=== PATIENT | female | born 1940 | race American Indian/Alaskan Native ===

== ENCOUNTER 2018-05-05 08:49 | Outpatient (CLI) | payer MEDICARE ==
--- NOTE | 2018-05-05 14:27 | Mammography Report ---
BILATERAL DIGITAL SCREENING MAMMOGRAM with CAD: 05/05/18 CLINICAL: Routine screening. COMPARISON:None available. However, a prior mammogram was apparently done [place], [place]. FINDINGS: The breasts are heterogeneously dense, which may obscure small masses. bilateral asymmetries require comparison with a prior mammogram or additional imaging. Right benign calcifications. No architectural distortion or suspicious calcifications. IMPRESSION: Bilateral asymmetries requiring further evaluation. BI-RADS CATEGORY: 0 -- Additional Evaluation Required RECOMMENDATION: Comparison with a previous mammogram. We will attempt to obtain a prior mammogram for comparison. If we do not obtain a prior mammogram within 30 days, a revised report will be issued recommending a recall for additional imaging. Please be advised that the patient should not schedule an appointment for return until adequate time (at least 2 weeks) has passed for us to obtain the prior mammogram. ACR BI-RADS MAMMOGRAPHIC CODES: 0 = Needs additional imaging evaluation; 1 = Negative; 2 = Benign; 3 = Probably benign; 4 = Suspicious; 5 = Malignant; 6 = Known biopsy-proven malignancy COMMENT: 1. Dense breast tissue, i.e., adenosis, fibrocystic changes, etc., may obscure an underlying neoplasm. 2. Approximately 10% of cancers are not detected with mammography. 3. A negative mammography report should not delay biopsy if a clinically suspicious mass is present. COMMENT: Patient follow-up letters are generated via our [employer] application.
== END 2018-05-05 08:50 | disposition home or self-care (01) ==
LOC: MAMMO 08:49
PROVIDERS: ATTEND Internal Medicine
DX: Z12.31 Encounter for screening mammogram for malignant neoplasm of breast (principal)
CPT/HCPCS: 77067

== ENCOUNTER 2018-06-20 08:29 | Outpatient (CLI) | payer MEDICARE ==
--- NOTE | 2018-06-20 15:10 | Mammography Report ---
BILATERAL DIGITAL DIAGNOSTIC MAMMOGRAM and LEFT BREAST ULTRASOUND: 06/20/18 08:29:00 CLINICAL: Recalled for bilateral asymmetries. COMPARISON:05/05/18 screening FINDINGS: Additional mammographic views of the right breast were performed and are negative.A left upper asymmetry persists on lateral and spot compression MLO views. Ultrasound of the upper left breast was performed and demonstrated a slightly irregular complex cyst at 11 o'clock 3 cm from the nipple. It measures 7 x 3 x 5 mm and may correlate with the mammographic density. A benign cyst at 2 o'clock at the edge of the areola measures 6 x 2 x 5 mm. IMPRESSION: A probably benign left upper mammographic asymmetry and a probably benign left complex cyst at 11 o'clock.Negative right breast. BI-RADS CATEGORY: 3 - - Probably Benign RECOMMENDATION: 6 month followup left mammogram and left breast ultrasound. ACR BI-RADS MAMMOGRAPHIC CODES: 0 = Needs additional imaging evaluation; 1 = Negative; 2 = Benign; 3 = Probably benign; 4 = Suspicious; 5 = Malignant; 6 = Known biopsy-proven malignancy COMMENT: 1. Dense breast tissue, i.e., adenosis, fibrocystic changes, etc., may obscure an underlying neoplasm. 2. Approximately 10% of cancers are not detected with mammography. 3. A negative mammography report should not delay biopsy if a clinically suspicious mass is present. COMMENT: Patient follow-up letters are generated via our [employer] application.
== END 2018-06-20 08:30 | disposition home or self-care (01) ==
LOC: MAMMO 08:29
PROVIDERS: ATTEND Internal Medicine
DX: R92.8 Other abnormal and inconclusive findings on diagnostic imaging of breast (principal)
CPT/HCPCS: 77066

== ENCOUNTER 2018-07-18 13:54 | Outpatient (CLI) | payer MEDICARE ==
[2018-07-18 14:43] LABS: BUN/Creatinine Ratio 25; Blood Urea Nitrogen 20 mg/dL (7-17); Calcium 10.5 mg/dL (8.4-10.2); Hemolysis Index 48
== END 2018-07-18 13:55 | disposition home or self-care (01) ==
LOC: LAB 13:54
PROVIDERS: ATTEND Internal Medicine Nephrology
DX: I10 Essential (primary) hypertension (principal); R94.4 Abnormal results of kidney function studies
CPT/HCPCS: 36415; 80048

== ENCOUNTER 2018-09-06 09:13 | Outpatient (CLI) | payer MEDICARE | END 2018-09-06 09:14 | disposition home or self-care (01) | LOC: LAB 09:13 | PROVIDERS: ATTEND Internal Medicine | DX: E11.9 Type 2 diabetes mellitus without complications (principal); E66.3 Overweight | CPT/HCPCS: 36415; 82607; 83036 ==

== ENCOUNTER 2019-01-03 13:42 | Outpatient (CLI) | payer MEDICARE ==
[2019-01-03 14:28] LABS: Albumin 4.2 g/dL (3.9-5); BUN/Creatinine Ratio 23; Blood Urea Nitrogen 21 mg/dL (7-17); Calcium 10.5 mg/dL (8.4-10.2); Hemolysis Index 6
== END 2019-01-03 13:43 | disposition home or self-care (01) ==
LOC: LAB 13:42
PROVIDERS: ATTEND Internal Medicine Nephrology
DX: I10 Essential (primary) hypertension (principal); E11.8 Type 2 diabetes mellitus with unspecified complications; R60.9 Edema, unspecified; E83.52 Hypercalcemia
CPT/HCPCS: 36415; 80048; 82040; 84100

== ENCOUNTER 2019-01-22 09:38 | Outpatient (CLI) | payer MEDICARE | END 2019-01-22 09:39 | disposition home or self-care (01) | LOC: LAB 09:38 | PROVIDERS: ATTEND Internal Medicine | DX: E11.9 Type 2 diabetes mellitus without complications (principal); E56.9 Vitamin deficiency, unspecified | CPT/HCPCS: 36415; 82607; 83036 ==

== ENCOUNTER 2019-02-08 12:37 | Outpatient (CLI) | payer MEDICARE ==
[2019-02-08 12:58] LABS: Hematocrit 38.8 % (30.3-42.9); Hemoglobin 13.1 gm/dl (10.1-14.3); Mean Corpuscular HGB Conc 34 % (30-34); Mean Corpuscular Volume 95 fl (79-97); Platelet Count 156 K/mm3 (140-440); Red Cell Distribution Width 15.6 % (13.2-15.2)
[2019-02-08 13:19] LABS: Bilirubin,Urine NEG (Negative); Blood,Urine NEG (Negative); Color,Urine Yellow (Yellow); Mucus,Urine FEW /HPF; Protein,Urine <15 mg/dL mg/dL (Negative); Urobilinogen,Urine < 2.0 mg/dL (<2.0)
--- NOTE | 2019-02-08 15:30 | Mammography Report ---
LEFT DIGITAL DIAGNOSTIC MAMMOGRAM WITH CAD -- 02/08/2019 LEFT LIMITED BREAST ULTRASOUND INDICATION: Follow-up of a mammographic asymmetry and a probably benign finding by ultrasound. TECHNIQUE: Digital left mammographic imaging was performed. Limited ultrasound was performed. This e xamination was interpreted with the benefit of Computer-Aided Detection (CAD) analysis. COMPARISON: 06/20/2018 FINDINGS: Breast Density: The breast is heterogeneously dense, which may obscure small masses. MAMMOGRAPHIC FINDINGS: The previously described mammographic density has resolved. No mass, support architect ural distortion or suspicious calcifications. ULTRASOUND FINDINGS: Targeted ultrasound evaluation was performed of the area of interest. Sound de monstrated a benign cyst at 11:00 3 cm from the nipple measuring 10 x 2 x 6 mm compared to 7 x 3 x 5 mm on the last exam. No solid mass or shadowing. IMPRESSION: Negative mammogram and a slightly larger benign left breast cyst at 11:00 3 cm from the n ipple. No suspicious finding. Follow up recommendation: Routine yearly BI-RADS Category 2: Benign. A "normal" or negative report should not discourage follow up or biopsy of a clinically significant f inding. A written summary of these findings will be mailed to the patient. The patient will be entered into a mammography reporting system which will generate a reminder letter for the patient's next appointmen t at the appropriate interval. According to the [employer], yearly mammograms are recommended starting at age 40 and continuing as long as a woman is in good health. Breast MRI is recommended for women with an mahesh roximately 20-25% or greater lifetime risk of breast cancer, including women with a strong family his tory of breast or ovarian cancer and women who have been treated for Hodgkin's disease. Signer Name: Herrera Cates MD Signed: 02/08/2019 3:26 PM Workstation Name: [id number]
[2019-02-10 12:38] LABS: Creatinine,Urine 129.8 mg/dL (0.1-20.0); Microalbumin/Creatinine Ratio 9.2 ug/mg; Protein/Creatinine Ratio,Urine 0.06
== END 2019-02-08 12:38 | disposition home or self-care (01) ==
LOC: MAMMO 12:37
PROVIDERS: ATTEND Internal Medicine
DX: R92.8 Other abnormal and inconclusive findings on diagnostic imaging of breast (principal); R82.998 Other abnormal findings in urine
CPT/HCPCS: 36415; 81001; 82043; 82570; 84156; 85027; 87086

== ENCOUNTER 2019-03-06 11:42 | Outpatient (CLI) | payer MEDICARE ==
[2019-03-06 12:34] LABS: BUN/Creatinine Ratio 24; Blood Urea Nitrogen 22 mg/dL (7-17); Calcium 10.4 mg/dL (8.4-10.2); Hemolysis Index 13
== END 2019-03-06 11:43 | disposition home or self-care (01) ==
LOC: LAB 11:42
PROVIDERS: ATTEND Internal Medicine Nephrology
DX: E83.52 Hypercalcemia (principal); R94.4 Abnormal results of kidney function studies; I10 Essential (primary) hypertension; R06.83 Snoring; R60.9 Edema, unspecified; E11.8 Type 2 diabetes mellitus with unspecified complications
CPT/HCPCS: 36415; 80048

== ENCOUNTER 2019-03-22 08:20 | Outpatient (CLI) | payer MEDICARE ==
--- NOTE | 2019-03-22 16:17 | PET Report ---
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 The patient weighed 163 lbs. The patient w as injected with 15.7 mCi of FDG in the left wrist at 0903 hours and imaging was started at 0948 hour s. The patient was imaged from theall CT scans at this location are performed using CT dose reductio n for ALARA by means of automated exposure control. Images were reviewed on a workstation. COMPARISON: No relevant comparison at this facility. FINDINGS: BRAIN: [Physiologic FDG uptake] NECK: [Physiologic FDG uptake] CHEST WALL: [Physiologic FDG uptake] MEDIASTINUM: [Physiologic FDG uptake] LUNGS: [Physiologic FDG uptake] HEPATOBILIARY: [Physiologic FDG uptake] PANCREAS: [Physiologic FDG uptake SPLEEN: [Physiologic FDG uptake] KIDNEYS/BLADDER: [Physiologic FDG uptake] ADRENAL GLANDS: [Physiologic FDG uptake] GI/MESENTERY: [Physiologic FDG uptake] PELVIC VISCERA: [Physiologic FDG uptake] LYMPH NODES: [Physiologic FDG uptake] OSSEOUS STRUCTURES: [Physiologic FDG uptake]. No suspicious lytic or blastic bony lesions are identi fied. ADDITIONAL FINDINGS: [Partial extravasation of the radiotracer in the left wrist is noted.] IMPRESSION: Negative PET CT Signer Name: Fabian Fernandez Jr, MD Signed: 03/22/2019 4:13 PM Workstation Name: [id number]
== END 2019-03-22 08:21 | disposition home or self-care (01) ==
LOC: PET 08:20
PROVIDERS: ATTEND Internal Medicine Hematology & Oncology
DX: D47.2 Monoclonal gammopathy (principal); R73.09 Other abnormal glucose
CPT/HCPCS: 78816; 82962; A9552

== ENCOUNTER 2019-06-22 10:53 | Outpatient (CLI) | payer MEDICARE ==
[2019-06-22 11:37] LABS: Albumin 4.5 g/dL (3.9-5); BUN/Creatinine Ratio 20; Blood Urea Nitrogen 18 mg/dL (7-17); Calcium 10.4 mg/dL (8.4-10.2); Hemolysis Index 3
[2019-06-22 12:13] LABS: Bacteria,Urine 2+ /HPF (Negative); Bilirubin,Urine NEG (Negative); Blood,Urine SM (Negative); Color,Urine Red (Yellow); Mucus,Urine FEW /HPF; Protein,Urine <15 mg/dL mg/dL (Negative); Urobilinogen,Urine < 2.0 mg/dL (<2.0)
[2019-06-22 12:32] LABS: Creatinine,Urine 157.1 mg/dL (0.1-20.0); Microalbumin/Creatinine Ratio 10.8 ug/mg
== END 2019-06-22 10:54 | disposition home or self-care (01) ==
LOC: LAB 10:53
PROVIDERS: ATTEND Internal Medicine Nephrology
DX: R94.4 Abnormal results of kidney function studies (principal)
CPT/HCPCS: 36415; 80048; 81001; 82040; 82043; 84100

== ENCOUNTER 2020-08-28 11:02 | Emergency (ER) | payer MEDICARE ==
--- NOTE | 2020-08-28 12:23 | Emergency Department Report ---
Blank Doc - Documentation Documentation: 79-year-old female that was sent by PCP for HTN and headaches. Takes Aspirin. 1- This initial assessment/diagnostic orders/clinical plan/ treatment(s) is/are subject to change based on pt's health status, clinical progression and re- assessment by fellow clinical providers in the ED. Further treatment and workup at subsequent clinical provers discretion. Patient/guardians urged not to elope from ED as their condition may be serious if not clinically assessed and managed. 2-labs 3-EKG 4-CT head
[2020-08-28 12:44] LABS: Basophils % (Auto) 0.6 % (0.0-1.8); Eosinophils % (Auto) 0.4 % (0.0-4.3); Hematocrit 40.8 % (30.3-42.9); Hemoglobin 13.6 gm/dl (10.1-14.3); Lymphocytes # (Auto) 2.2 K/mm3 (1.2-5.4); Lymphocytes % (Auto) 36.2 % (13.4-35.0); Mean Corpuscular HGB Conc 33 % (30-34); Mean Corpuscular Volume 97 fl (79-97); Monocytes # (Auto) 0.4 K/mm3 (0.0-0.8); Monocytes % (Auto) 7.2 % (0.0-7.3); Platelet Count 184 K/mm3 (140-440); Red Blood Count 4.21 M/mm3 (3.65-5.03); Red Cell Distribution Width 16.3 % (13.2-15.2)
[2020-08-28 13:11] LABS: Alanine Aminotransferase 11 units/L (7-56); Albumin 4.4 g/dL (3.9-5); BUN/Creatinine Ratio 18; Blood Urea Nitrogen 14 mg/dL (7-17); Hemolysis Index 26
[2020-08-28 13:36] LABS: Bilirubin,Urine NEG (Negative); Blood,Urine NEG (Negative); Color,Urine Colorless (Yellow); Protein,Urine <15 mg/dL mg/dL (Negative); Urobilinogen,Urine < 2.0 mg/dL (<2.0)
--- NOTE | 2020-08-28 14:16 | Cat Scan Report ---
CT HEAD WITHOUT CONTRAST INDICATION / CLINICAL INFORMATION: headache with HTN. TECHNIQUE: All CT scans at this location are performed using CT dose reduction for ALARA by means of automated e xposure control. COMPARISON: None available. FINDINGS: HEMORRHAGE: None. EXTRA-AXIAL SPACES: Normal in size and morphology for the patient's age. VENTRICULAR SYSTEM: Normal in size and morphology for the patient's age. CEREBRAL PARENCHYMA: No significant abnormality. No acute territorial infarct. MIDLINE SHIFT OR HERNIATION: None. CEREBELLUM / BRAINSTEM: No significant abnormality. ORBITS: Normal as visualized. SOFT TISSUES of HEAD: No significant abnormality. CALVARIUM: No significant abnormality. PARANASAL SINUSES / MASTOID AIR CELLS: Normal as visualized. ADDITIONAL FINDINGS: None. IMPRESSION: 1. No acute intracranial abnormality. Signer Name: Jesús Oconnor MD Signed: 08/28/2020 2:11 PM Workstation Name: [id number]
--- NOTE | 2020-08-28 14:34 | Emergency Department Report ---
ED General Adult HPI - General Chief complaint: High BP Stated complaint: hypertensive Time Seen by Provider: 08/28/20 12:20 Source: patient Mode of arrival: Ambulatory Limitations: No Limitations - History of Present Illness Initial comments: CC: My blood pressure was up. My doctor wanted me checked out. HPI: This is a 79-year-old female with history of CAD, diabetes mellitus, hypertension, hyperlipidemia who presents with elevated blood pressure for the past week. Patient did not take her home medications this morning. She normally takes her blood pressure medications at 11 AM when she has a late lunch. She had a 10 AM appointment. She takes blood pressure medications in the morning and evening. She denies any pain or discomfort this time. She denies headache. Denies blurry vision. No chest pain. No abdominal pain. Headache was documented in triage by nursing provider. Patient stated that she over the past week had a slight frontal headache which is now resolved. She denies blurry vision. No chest pain. She has follow-up with her print operator tomorrow. -: Gradual, week(s) (1 week elevated blood pressure) Location: head (Mild headache over the past week which is now resolved) Severity scale (0 -10): 0 Quality: aching Consistency: now resolved Improves with: none Worsens with: none Associated Symptoms: denies other symptoms - Related Data Allergies Allergy/AdvReac Type Severity Reaction Status Date / Time No Known Allergies Allergy Verified 08/28/20 11:52 ED Review of Systems ROS: Stated complaint: hypertensive Other details as noted in HPI Comment: All other systems reviewed and negative Constitutional: denies: fever, malaise Respiratory: denies: cough, shortness of breath Neurological: headache. denies: numbness ED Past Medical Hx - Past Medical History Previous Medical History?: Yes Hx Hypertension: Yes Hx Diabetes: Yes Additional medical history: Coronary artery disease - Surgical History Past Surgical History?: Yes Hx Coronary Stent: Yes - Social History Smoking Status: Never Smoker ED Physical Exam - General Limitations: No Limitations General appearance: alert, in no apparent distress, other (Pleasant smiling appears comfortable appears well appears healthy) - Head Head exam: Present: atraumatic, normocephalic - Eye Eye exam: Present: normal appearance - ENT ENT exam: Present: mucous membranes moist - Neck Neck exam: Present: normal inspection, full ROM - Respiratory Respiratory exam: Present: normal lung sounds bilaterally. Absent: respiratory distress, wheezes, rales, rhonchi - Cardiovascular Cardiovascular Exam: Present: regular rate, normal rhythm, normal heart sounds. Absent: systolic murmur, diastolic murmur, rubs, gallop - GI/Abdominal GI/Abdominal exam: Present: soft, normal bowel sounds. Absent: distended, tenderness, guarding, rebound - Extremities Exam Extremities exam: Present: normal inspection - Neurological Exam Neurological exam: Present: alert, oriented X3 - Psychiatric Psychiatric exam: Present: normal affect, normal mood - Skin Skin exam: Present: warm, dry, intact, normal color. Absent: rash ED Course Vital Signs 08/28/20 11:54 Temperature 97.9 F Pulse Rate 71 Respiratory 20 Rate Blood Pressure 235/110 O2 Sat by Pulse 98 Oximetry ED Medical Decision Making - Lab Data Result diagrams: 08/28/20 12:25 08/28/20 12:25 Laboratory Results - last 24 hr 08/28/20 08/28/20 08/28/20 12:25 12:25 12:57 WBC 6.1 RBC 4.21 Hgb 13.6 Hct 40.8 MCV 97 MCH 32 MCHC 33 RDW 16.3 H Plt Count 184 Lymph % (Auto) 36.2 H [place] % (Auto) 7.2 Eos % (Auto) 0.4 Baso % (Auto) 0.6 Lymph # (Auto) 2.2 [place] # (Auto) 0.4 Eos # (Auto) 0.0 Baso # (Auto) 0.0 Seg Neutrophils % 55.6 Seg Neutrophils # 3.4 Sodium 139 Potassium 3.9 Chloride 104.4 Carbon Dioxide 25 Anion Gap 14 BUN 14 Creatinine 0.8 Estimated GFR > 60 BUN/Creatinine Ratio 18 Glucose 149 H Calcium 10.0 Total Bilirubin 0.40 AST 15 ALT 11 Alkaline Phosphatase 77 Total Protein 7.4 Albumin 4.4 Albumin/Globulin Ratio 1.5 Urine Color Colorless Urine Turbidity Clear Urine pH 6.0 Ur Specific [place] 1.004 Urine Protein <15 mg/dl Urine Glucose (UA) Neg Urine Ketones Neg Urine Blood Neg Urine Nitrite Neg Urine Bilirubin Neg Urine Urobilinogen < 2.0 Ur Leukocyte Esterase Neg Urine WBC (Auto) 1.0 Urine RBC (Auto) 1.0 U Epithel Cells (Auto) 1.0 - Radiology Data Radiology results: report reviewed CT head without contrast: No acute intracranial abnormality - Medical Decision Making CBC chemistry urinalysis within normal limits. Asymptomatic hypertension: Patient's blood pressure improved with IV labetalol. I have asked her to review her medications with print operator tomorrow. I have asked her to have her blood pressure managed by her print operator during her appointment tomorrow. I have also asked her to take the results of her lab studies to the print operator. Critical care attestation.: If time is entered above; I have spent that time in minutes in the direct care of this critically ill patient, excluding procedure time. ED Disposition Clinical Impression: Asymptomatic hypertensive urgency Disposition: [id number] TO HOME OR SELFCARE Is pt being admited?: No Does the pt Need Aspirin: No Condition: Stable Additional Instructions: Your blood pressure today is 235/110. We decrease your blood pressure using medication in the emergency department. Please take your blood pressure medicine tomorrow before your cardiology appointment in order to make appropriate medication adjustment.
[2020-08-28 15:35] VITALS: BP 195/87
== END 2020-08-28 14:45 | disposition home or self-care (01) ==
LOC: ED 11:02
DX: I16.0 Hypertensive urgency (principal); E11.9 Type 2 diabetes mellitus without complications; R51.9 Headache, unspecified; Z98.890 Other specified postprocedural states
CPT/HCPCS: 36415; 70450; 80053; 81001; 85025; 96374